=== PATIENT | male | born 1950 | race Caucasian/White ===

== ENCOUNTER 2017-09-25 06:25 | Day surgery (SDC) | payer OTHER ==
[~2017-09-25] VITALS: Ht 175.3 cm; Wt 98.9 kg
[~2017-09-25 06:25] MED LIST: AMLO10 PO; HYDCHL25 PO; LISI5 PO; LOSA50 PO; METO100ER PO; Omeprazole20 M1 PO; PRAV20 PO
[2017-09-25] MEDS ORDERED: ASPI325EC PO (12:39)
[2017-09-25] MEDS ORDERED: ROXICODONE5 MG PO (12:40)
[2017-09-25] MEDS ORDERED: PROM25 PO (12:40)
== END 2017-09-25 15:44 | disposition home or self-care (01) ==
LOC: ORSCMMR 06:25 → ORD 07:30 → ORSCMMR 07:30 → SURS 10:59 → ORSCMMR 15:44
PROVIDERS: Orthopaedic Surgery
PROC: 0SRC0J9 Replacement of Right Knee Joint with Synthetic Substitute, Cemented, Open Approach (ICD-10-PCS; principal; 2017-09-25 07:30)
PROC: 8E0YXBZ Computer Assisted Procedure of Lower Extremity (ICD-10-PCS; principal; 2017-09-25 07:30)
DX: M17.11 Unilateral primary osteoarthritis, right knee (principal); I10 Essential (primary) hypertension; E78.00 Pure hypercholesterolemia, unspecified; Z87.891 Personal history of nicotine dependence; Z79.899 Other long term (current) drug therapy
CPT/HCPCS: 73560-RT; 88300; 97110; 97116; 97162; 97530; C1713; C1776; G8978; G8979; G8980; J0171; J0690; J0735; J1100; J1885; J2250; J2405; J2795; J7120

== ENCOUNTER → 2018-09-03 | Outpatient (CLI) | payer OTHER ==
[~2018-09-03] MED LIST changes: +ASPI325EC PO; +PROM25 PO; +ROXICODONE5 MG PO
== END | disposition home or self-care (01) ==
LOC: LAB SHORT 09:30 → LAB 09:30
DX: N39.0 Urinary tract infection, site not specified (principal)
CPT/HCPCS: 87086

== ENCOUNTER 2021-07-25 07:30 | Day surgery (SDC) | payer OTHER ==
[~2021-07-25] VITALS: Ht 182.9 cm; Wt 103.1 kg
== END 2021-07-25 08:59 | disposition home or self-care (01) ==
LOC: ORSCSDS 07:30
PROVIDERS: Anesthesiology
PROC: 3E0R3BZ Introduction of Anesthetic Agent into Spinal Canal, Percutaneous Approach (ICD-10-PCS; principal; 2021-07-25 08:30)
DX: M96.1 Postlaminectomy syndrome, not elsewhere classified (principal); M54.16 Radiculopathy, lumbar region; M48.061 Spinal stenosis, lumbar region without neurogenic claudication; G89.29 Other chronic pain; M54.50 Low back pain, unspecified; I10 Essential (primary) hypertension; K21.9 Gastro-esophageal reflux disease without esophagitis; E78.00 Pure hypercholesterolemia, unspecified; Z87.891 Personal history of nicotine dependence; E66.9 Obesity, unspecified; Z68.31 Body mass index [BMI] 31.0-31.9, adult; Z79.01 Long term (current) use of anticoagulants; Z79.899 Other long term (current) drug therapy
CPT/HCPCS: J1040

== ENCOUNTER 2023-04-08 22:33 | Emergency (ER) | payer OTHER ==
[~2023-04-08] VITALS: Ht 175.3 cm; Wt 97.5 kg
[2023-04-08 23:15] LABS: BASOPHILS ABSOLUTE AUTO 0.01 K/mm3 (0.00-0.23); BASOPHILS PERCENT AUTO 0 % (0-2); EOSINOPHILS ABSOLUTE AUTO 0.05 K/mm3 (0.00-0.68); EOSINOPHILS PERCENT AUTO 1 % (0-6); Hematocrit 37.5 % (37.0-53.0); Hemoglobin 12.8 g/dL (13.5-17.5); IMMATURE GRAN ABSOLUTE AUTO 0.03 K/mm3 (0.00-0.10); IMMATURE GRAN PERCENT AUTO 1 % (0-1); LYMPHOCYTES ABSOLUTE AUTO 1.03 K/mm3 (0.84-5.20); LYMPHOCYTES PERCENT AUTO 16 % (21-46); MONOCYTES ABSOLUTE AUTO 0.59 K/mm3 (0.16-1.47); MONOCYTES PERCENT AUTO 9 % (4-13); Mean Corpuscular HGB 32.7 pg (26.0-34.0); Mean Corpuscular HGB Conc 34.1 g/dL (31.5-36.5); Mean Corpuscular Volume 96 fL (80-100); Mean Platelet Volume 9.6 fL (9.1-12.4); NEUTROPHILS ABSOLUTE AUTO 4.89 K/mm3 (1.96-9.15); NEUTROPHILS PERCENT AUTO 74 % (41-73); Platelet Count 188 K/mm3 (150-400); RDW Coefficient Variation 12.2 % (11.7-14.2); RDW Standard Deviation 42.8 fL (35.1-46.3); Red Blood Cell Count 3.92 M/mm3 (4.30-5.90)
[2023-04-08 23:49] LABS: International Normalized Ratio 1.07; Prothrombin Time Results 11.2 Sec (9.7-11.5)
[2023-04-08 23:54] LABS: Albumin, Blood 3.3 g/dL (3.4-5.0); Albumin/Globulin Ratio 0.9 (0.8-1.8); Bilirubin, Total 0.3 mg/dL (0.1-1.0); Bun/Creatinine Ratio 26.6 (12.0-20.0); Calcium, Blood 8.5 mg/dL (8.5-10.1); Creatinine, Blood 0.94 mg/dL (0.60-1.20); Globulin, Blood 3.8 g/dL (2.2-4.0); Magnesium, Blood 2.4 mg/dL (1.6-2.4); Phosphorus, Blood 3.4 mg/dL (2.5-4.9); Potassium, Blood 4.1 mmol/L (3.5-5.5); Thyroid Stimulating Hormone 1.58 uIU/mL (0.360-4.800); Total Protein, Blood 7.1 g/dL (6.4-8.2)
[2023-04-09] MEDS ORDERED: ELIQUIS5 M2 PO (01:29)
[2023-04-09] MEDS ORDERED: Vitamin D1000 UNI1 PO (01:29)
[2023-04-09] MEDS ORDERED: TAMS.4ER PO (01:30)
[2023-04-09 03:00] VITALS: BP 128/66
== END 2023-04-09 04:20 | disposition short-term general hospital (02) ==
LOC: ER 22:33
PROVIDERS: Emergency Medicine
DX: R00.1 Bradycardia, unspecified (principal); I10 Essential (primary) hypertension; I48.91 Unspecified atrial fibrillation; Z79.899 Other long term (current) drug therapy; Z79.82 Long term (current) use of aspirin; Z87.891 Personal history of nicotine dependence
CPT/HCPCS: 71045; 80053; 83605; 83735; 84100; 84443; 84484; 85025; 85610; 85730; 92960; 93005; 93010; 96361; 96374; 96375; 99285-25; J0461; J1610; J7030

== ENCOUNTER 2024-06-25 09:49 | Day surgery (SDC) | payer OTHER ==
[2024-06-25] VITALS (14 sets, daily range): BP systolic 112–163; BP diastolic 81–111
[~2024-06-25] VITALS: Ht 177.8 cm; Wt 94.4 kg
[~2024-06-25 09:49] MED LIST changes: +ELIQUIS5 M2 PO; +Lactated Ringer's 1,000 ML IV SCH; +TAMS.4ER PO; +Vitamin D1000 UNI1 PO
--- NOTE | 2024-06-25 10:39 | NUR ---
Ambulatory in Day Surgery History, Chart, Medications and Allergies reviewed before start of procedure. Pre-Op teaching done. Pt verbalizes understanding. Patient States Post-Procedure ride home has been arranged.
[2024-06-25] MEDS ORDERED: propofoL 20 ML IV ONE (11:07)
--- NOTE | 2024-06-25 11:16 | NUR ---
06/25/24 Ambrocio6 Mildred Gutierrez CONFIRMED AND REVIEWED H&P, MEDCICATIONS, ALLERGIES, MEDICAL HISTORY, RESPIRATORY HISTORY, VITAL SIGNS, 3-LEAD EKG, CONSENTS, AND PHYSICIAN ORDERS. PATIENT CONFIRMS NPO STATUS AND AGREES WITH SCHEDULED PROCEDURE. MONITOR INTACT WITH CONTINUOUS PULSE OXIMETRY, CAPNOGRAPHY, 3-LEAD EKG, INTERMITTENT BP. SUPPLEMENTAL O2 TO BE TITRATED THROUGHOUT PROCEDURE TO MAINTAIN O2 SATURATION ABOVE 90%. PATIENT DETERMINED TO BE ASA APPROPRIATE FOR PROPOFOL SEDATION PRIOR TO START OF PROCEDURE BY . MALLAMPATI CLASS 2 AIRWAY: COMPLETE VISUALIZATION OF THE UVULA.
--- NOTE | 2024-06-25 12:06 | NUR ---
Discharge instructions reviewed with patient. Patient verbalizes understanding. Copy given to patient to take home. Patient States Post-Procedure ride home has been arranged. Discharged via wheelchair to private car for ride home.
== END 2024-06-25 12:05 | disposition home or self-care (01) ==
LOC: ORSCMMR 09:49 → ORD 10:30 → ORSCMMR 10:30
PROVIDERS: Internal Medicine Gastroenterology
PROC: 0DBN8ZX Excision of Sigmoid Colon, Via Natural or Artificial Opening Endoscopic, Diagnostic (ICD-10-PCS; principal; 2024-06-25 10:30)
DX: Z12.11 Encounter for screening for malignant neoplasm of colon (principal); K63.5 Polyp of colon; K57.30 Diverticulosis of large intestine without perforation or abscess without bleeding; K64.4 Residual hemorrhoidal skin tags; I48.0 Paroxysmal atrial fibrillation; Z79.01 Long term (current) use of anticoagulants; I10 Essential (primary) hypertension; N40.0 Benign prostatic hyperplasia without lower urinary tract symptoms; E78.00 Pure hypercholesterolemia, unspecified; G47.33 Obstructive sleep apnea (adult) (pediatric); Z79.899 Other long term (current) drug therapy; Z87.891 Personal history of nicotine dependence
CPT/HCPCS: 88305; J2704; J7120

== ENCOUNTER → 2024-12-18 | Outpatient (CLI) | payer OTHER ==
[~2024-12-18] MED LIST changes: -Lactated Ringer's 1,000 ML IV SCH
== END | disposition home or self-care (01) ==
LOC: LAB 15:23 → LAB SHORT 15:23
DX: N39.0 Urinary tract infection, site not specified (principal); R35.0 Frequency of micturition; R30.0 Dysuria
CPT/HCPCS: 87077; 87086; 87186

== ENCOUNTER → 2024-12-24 | Outpatient (CLI) | payer OTHER | LOC: LAB SHORT 15:10 → LAB 15:10 | DX: R30.0 Dysuria (principal); N39.0 Urinary tract infection, site not specified; R35.0 Frequency of micturition | CPT/HCPCS: 87086 ==

== ENCOUNTER 2025-03-01 07:31 | Day surgery (SDC) | payer OTHER ==
[~2025-03-01] VITALS: Ht 172.7 cm; Wt 95.3 kg
[2025-03-01] VITALS (8 sets, daily range): BP systolic 141–177; BP diastolic 84–112
[~2025-03-01 07:31] MED LIST changes: +OMEP20ER PO; +VITAMIN D31000 UNI1 PO
[2025-03-01] MEDS ORDERED: CeFAZolin Sodium 2,000 MG in NS 100 ML IV SCH (08:00)
[2025-03-01] MEDS ORDERED: LOSA25 PO (08:12)
--- NOTE | 2025-03-01 08:50 | NUR ---
History, Chart, Medications and Allergies reviewed before start of procedure. Pre-Op teaching done. Pt verbalizes understanding. Patient confirms NPO status and agrees with scheduled surgery. PT SPOUSE AT BS.
[2025-03-01] MEDS ORDERED: Midazolam HCl 1MG / ML 2ML Vial IV ONE (09:40)
[2025-03-01] MEDS ORDERED: Bupivacaine 0.5% HCl 5 MG/ML 30MLVIAL ONE (09:42)
[2025-03-01] MEDS ORDERED: FentaNYL Citrate 50 MCG/ML 2 ML Injection ONE (09:54)
[2025-03-01] MEDS ORDERED: Rocuronium Bromide 10 MG/ML 5ML Injection IV ONE ×2 (09:56→10:54)
[2025-03-01] MEDS ORDERED: Ketorolac Tromethamine 30mg Vial ONE (10:02)
[2025-03-01] MEDS ORDERED: Dexamethasone Sod Phos 10 MG/ML 1ML VIAL ONE (10:03)
[2025-03-01] MEDS ORDERED: Phenylephrine HCl 10mg/ml 1 ml Vial ONE (10:03)
[2025-03-01] MEDS ORDERED: Ondansetron HCl 2 MG / ML 2ML Vial ONE (10:03)
[2025-03-01] MEDS ORDERED: Albuterol 2.5 MG/3 ML VIAL INH PRN (10:10)
[2025-03-01] MEDS ORDERED: Ondansetron HCl 2 MG / ML 2ML Vial IV PRN (10:10)
[2025-03-01] MEDS ORDERED: FentaNYL Citrate 50 MCG/ML 2 ML Injection IV PRN (10:10)
[2025-03-01] MEDS ORDERED: HYDROmorphone HCl/Pf 1MG SYR IV PRN ×2 (10:10)
[2025-03-01] MEDS ORDERED: Sugammadex Sodium 200 MG/2ML SDV (100 MG/ML) ONE (11:25)
[2025-03-01] MEDS ORDERED: HYDROcodone 5-APAP 325 TAB PO PRN (11:35)
--- NOTE | 2025-03-01 12:37 | NUR ---
PAIENT UP TO DRESS. VOIDED WITHOUT DIFFICULTY AND AMBULATES WITH STEADY GAIT. DENIES DIZZIENSS. NO C/O VERBALIZED. DENIES PAIN. VSS. PATIENT STATES BP IS CONSISTANT WITH BASELINE. PATIENT'S , INA, AT BEDSIDE, AND CONFIRMS THE SAME. TOLERATING COFFEE AND DENIES NAUSEA. CLEAR OCCLUSIVE DRSG OVER FOLDED GAUZE TO RIGHT GROIN NOTED WITH NO NOTED ERYTHEMA, SWELLING OR DRAINAGE. Discharge instructions reviewed with patient. Patient verbalizes understanding. Copy given to patient to take home. Patient States Post-Procedure ride home has been arranged with , Ina. Prescription script given to to fill.
--- NOTE | 2025-03-01 12:48 | NUR ---
PATIENT GIVEN ICE PACK UPON DISCHARGE WITH INSTRUCTIONS ON USE.
== END 2025-03-01 12:44 | disposition home or self-care (01) ==
LOC: ORSCMMR 07:31 → ORD 09:00 → ORSCMMR 12:44
PROVIDERS: Surgery
PROC: 0YU50JZ Supplement Right Inguinal Region with Synthetic Substitute, Open Approach (ICD-10-PCS; principal; 2025-03-01 09:00)
DX: K40.90 Unilateral inguinal hernia, without obstruction or gangrene, not specified as recurrent (principal); I10 Essential (primary) hypertension; Z86.73 Personal history of transient ischemic attack (TIA), and cerebral infarction without residual deficits; I48.0 Paroxysmal atrial fibrillation; Z79.01 Long term (current) use of anticoagulants; G47.33 Obstructive sleep apnea (adult) (pediatric); E78.00 Pure hypercholesterolemia, unspecified; N40.0 Benign prostatic hyperplasia without lower urinary tract symptoms; I27.20 Pulmonary hypertension, unspecified; Z95.0 Presence of cardiac pacemaker; Z79.899 Other long term (current) drug therapy
CPT/HCPCS: C1781; J0690; J1100; J1885; J2250; J2371; J2405; J2704; J3010; J7120

== ENCOUNTER 2025-03-08 22:52 | Inpatient (IN) | payer OTHER ==
[~2025-03-08] VITALS: Ht 170.2 cm; Wt 96.5 kg
[~2025-03-08 22:52] MED LIST changes: +LOSA25 PO
[2025-03-08 23:58] LABS: BASOPHILS ABSOLUTE AUTO 0.02 K/mm3 (0.00-0.23); BASOPHILS PERCENT AUTO 0 % (0-2); EOSINOPHILS ABSOLUTE AUTO 0.10 K/mm3 (0.00-0.68); EOSINOPHILS PERCENT AUTO 1 % (0-6); Hematocrit 35.9 % (37.0-53.0); Hemoglobin 12.2 g/dL (13.5-17.5); IMMATURE GRAN ABSOLUTE AUTO 0.09 K/mm3 (0.00-0.10); IMMATURE GRAN PERCENT AUTO 1 % (0-1); LYMPHOCYTES ABSOLUTE AUTO 1.30 K/mm3 (0.84-5.20); LYMPHOCYTES PERCENT AUTO 13 % (21-46); MONOCYTES ABSOLUTE AUTO 0.73 K/mm3 (0.16-1.47); MONOCYTES PERCENT AUTO 7 % (4-13); Mean Corpuscular HGB Conc 34.0 g/dL (31.5-36.5); Mean Corpuscular Volume 96 fL (80-100); NEUTROPHILS ABSOLUTE AUTO 7.89 K/mm3 (1.96-9.15); NEUTROPHILS PERCENT AUTO 78 % (41-73); NRBC ABSOLUTE 0.00 K/mm3 (0.00-0.02); NRBC Auto 0.0 /100 WBC (0.0-0.2); Platelet Count 238 K/mm3 (150-400); RDW Coefficient Variation 12.5 % (11.7-14.2); RDW Standard Deviation 44.2 fL (35.1-46.3)
[2025-03-09] VITALS (22 sets, daily range): BP systolic 86–140; BP diastolic 65–121
[2025-03-09 00:16] LABS: Alanine Aminotransfer (ALT/SGP 21.0 U/L (12-78); Albumin, Blood 2.8 g/dL (3.4-5.0); Albumin/Globulin Ratio 0.9 (0.8-1.8); Anion Gap 8.0 mmol/L (3-11); Aspartate Aminotrans (AST/SGOT 15.0 U/L (12-37); Bilirubin, Total 0.3 mg/dL (0.1-1.0); Blood Urea Nitrogen 20.0 mg/dL (8-24); CO2, Blood 26.0 mmol/L (21-32); Calcium, Blood 8.1 mg/dL (8.5-10.1); Chloride, Blood 100.0 mmol/L (98-108); Creatinine, Blood 0.92 mg/dL (0.60-1.20); Globulin, Blood 3.0 g/dL (2.2-4.0); Glucose, Blood 159.0 mg/dL (70-99); Potassium, Blood 3.8 mmol/L (3.5-5.5); Sodium, Blood 130.0 mmol/L (136-145); Total Protein, Blood 5.8 g/dL (6.4-8.2)
[2025-03-09] MEDS ORDERED: NS 1,000 ML IV SCH ×2 (00:25→05:00)
[2025-03-09] MEDS ORDERED: FentaNYL Citrate 50 MCG/ML 2 ML Injection IV PRN ×3 (00:25→14:20)
[2025-03-09 02:09] LABS: Source, Urine Clean Catch
[2025-03-09] MEDS ORDERED: HUMAN PROTHROMBIN COMPLX IV ONE (02:15)
[2025-03-09] MEDS ORDERED: WATER FOR INJECTION STERILE IV ONE (02:15)
[2025-03-09 02:17] LABS: Bilirubin, Urine Neg (Neg); Glucose Qualitative, Urine Neg (Neg); Ketones, Urine Neg (Neg); Leukocyte Esterase, Urine 1+ (Neg); Protein, Urine 2+ (Neg); Specific Gravity, Urine 1.010 (1.003-1.022); Urobilinogen, Urine NORM (Normal)
[2025-03-09 02:38] LABS: Color, Urine Yellow (P-Yellow)
[2025-03-09 02:40] LABS: Red Blood Cells, Urine 0-2 /hpf (0-2); White Blood Cells, Urine 0-2 /hpf (0-5)
[2025-03-09] MEDS ORDERED: FLU VACC TS2025(65UP)/MF59C/PF 45 MCG/0.5 ML SYRINGE IM SCH (04:50)
[2025-03-09 05:08] LABS: Hematocrit 28.8 % (37.0-53.0); Hemoglobin 10.0 g/dL (13.5-17.5)
[2025-03-09 05:37] LABS: Alanine Aminotransfer (ALT/SGP 20.0 U/L (12-78); Albumin, Blood 2.5 g/dL (3.4-5.0); Albumin/Globulin Ratio 0.9 (0.8-1.8); Anion Gap 9.0 mmol/L (3-11); Aspartate Aminotrans (AST/SGOT 18.0 U/L (12-37); Bilirubin, Total 0.3 mg/dL (0.1-1.0); Blood Urea Nitrogen 18.0 mg/dL (8-24); CO2, Blood 25.0 mmol/L (21-32); Calcium, Blood 7.8 mg/dL (8.5-10.1); Chloride, Blood 102.0 mmol/L (98-108); Creatinine, Blood 0.77 mg/dL (0.60-1.20); Globulin, Blood 2.8 g/dL (2.2-4.0); Glucose, Blood 156.0 mg/dL (70-99); Potassium, Blood 4.2 mmol/L (3.5-5.5); Sodium, Blood 132.0 mmol/L (136-145); Total Protein, Blood 5.3 g/dL (6.4-8.2)
--- NOTE | 2025-03-09 07:16 | NUR ---
ADMIT PT ARRIVED TO SURGICAL UNIT AT 0605 TODAY VIA GURNEY FROM ED. ABLE TO SLIDE/TRANSFER SELF PRN TO BED. SCROTUM SWOLLEN, PRESSURE DRESSING/MICHELA WRAP PLACED IN ED CDI. IS A/OX4 WITH VSS, ON RA. TELE PLACED; HR AFIB IN 80'S WITH OCC. V PACER. PER CONFORMAL PAD FORMER. TAKES ELITONEY, LAST DOSE 199903/08/25. REPORTS PACEMAKER. DENIES CHEST PAIN, PRESSURE, NV, OR N.T. ORIENTATION TO ROOM PROVIDED. DENIES NEEDS. HAS CALL LIGHT IN REACH. IS NPO. BEDSIDE REPORT GIVEN TO ONCOMING RN. AWAITING SURGICAL CONSULT
[2025-03-09] MEDS ORDERED: Cholecalciferol 1000 Unit Tablet (=25MCG) PO SCH (09:00)
[2025-03-09 09:11] LABS: Ferritin, Serum 237.0 ng/mL (26-388); Total Iron Binding Capacity 201.0 ug/dL (250-450)
[2025-03-09] MEDS ORDERED: LOSA50 PO (10:02)
[2025-03-09] MEDS ORDERED: METO50ER PO (10:03)
[2025-03-09] MEDS ORDERED: Rocuronium Bromide 10 MG/ML 5ML Injection IV ONE ×2 (11:26→13:06)
[2025-03-09] MEDS ORDERED: Midazolam HCl 1MG / ML 2ML Vial ONE (11:27)
[2025-03-09] MEDS ORDERED: FentaNYL Citrate 50 MCG/ML 2 ML Injection ONE (11:27)
--- NOTE | 2025-03-09 11:38 | NUR ---
TO DAY SURGERY VIA GOURNEY. UNABLE TO STAND TRANSFER BUT [facility]
[2025-03-09] MEDS ORDERED: Bupivacaine 0.5% HCl 5 MG/ML 30MLVIAL ONE (11:54)
--- NOTE | 2025-03-09 12:14 | NUR ---
UPPER AND LOWER DENTURES SENT TO PACU.
[2025-03-09 12:18] LABS: Hematocrit 30.1 % (37.0-53.0); Hemoglobin 10.3 g/dL (13.5-17.5)
[2025-03-09] MEDS ORDERED: Phenylephrine HCl 10mg/ml 1 ml Vial ONE (12:29)
[2025-03-09] MEDS ORDERED: Ondansetron HCl 2 MG / ML 2ML Vial ONE (12:32)
[2025-03-09] MEDS ORDERED: Dexamethasone Sod Phos 10 MG/ML 1ML VIAL ONE (12:33)
[2025-03-09] MEDS ORDERED: Ketorolac Tromethamine 30mg Vial ONE (12:39)
[2025-03-09] MEDS ORDERED: CeFAZolin Sodium 1000 mg Vial ONE ×2 (12:41→12:42)
[2025-03-09] MEDS ORDERED: Phenylephrine HCl 100 MCG/ML-NS 10MLSYR (1MG/10ML) ONE (12:59)
[2025-03-09] MEDS ORDERED: Sugammadex Sodium 200 MG/2ML SDV (100 MG/ML) ONE (13:32)
[2025-03-09] MEDS ORDERED: Ondansetron HCl 2 MG / ML 2ML Vial IV PRN (14:20)
[2025-03-09] MEDS ORDERED: HYDROmorphone HCl/Pf 1MG SYR IV PRN ×3 (14:20→18:20)
--- NOTE | 2025-03-09 14:25 | NUR ---
SCROTUM DARK PURPLE AND SWOLLEN LARGER THAN GRAPEFRUIT, UNABLE TO VISUALIZE PENIS, DR MOBLEY NOTIFIED, AT BEDSIDE TO VISUALIZE, STATES FINDINGS ARE EXPECTED, NO FURTHER INTERVENTION AT THIS TIME. PT VERY AGITATED, DIFFICULT TO MONITOR DUE TO MOVEMENT, PT ORIENTED, 2ND RN CALLED TO BEDSIDE TO HELP KEEP PT CALM AND SAFE IN [facility].
[2025-03-09] MEDS ORDERED: Human Prothrombin Complx(Pcc) 2,000 UNIT in Water For Injection,Sterile 80 ML IV ONE (15:00)
--- NOTE | 2025-03-09 15:48 | NUR ---
ARRIVAL TO UNIT PT ARRIVED TO UNIT AT APPROX 1515. A/OX4. TOLERATING PO INTAKE. RESTING IN BED. FOLLEY IN PLACE AND DRAINING TO GRAVITY. AISHWARYA DRAIN ON L GROIN. CALL LIGHT IN REACH SPOUSE IN ROOM.
--- NOTE | 2025-03-09 18:05 | NUR ---
SHIFT SUMMARY POD 0 DRAINAGE OF GROIN HEMATOMA PT IS A/OX4, WAS ABLE TO STAND AT EDGE OF BED BUT IT WAS PAINFUL DUE TO ENLARGED SCROTUM. AISHWARYA DRAIN PUTTING OUT SANGUINEOUS DRAINAGE, INSERTION SITE ALSO DRAINING. TWO INCISION SITES FROM THE PROCEDURE, C/D/I. TOLERATING DIET. DENIES N/V. PAIN MANAGED PER EMAR. SCROTUM IS ECCHYMOTIC AND APPROX THE SIZE OF A C[place]PE. CALL LIGHT IN REACH BED IN LOWEST POSITION.
[2025-03-10 04:02] VITALS: BP 146/88
--- NOTE | 2025-03-10 05:35 | NUR ---
SHIFT SUMMARY A/OX4, SBA FOR TRANSFERS. DENIES PAIN T/O THE NIGHT. SWELLING AND BRUISING NOTED TO SCROTUM. AISHWARYA DRAIN TO R. GROIN WITH ERROL RED OUTPUT. NO ACUTE CHANGES AT THIS TIME.
[2025-03-10 05:45] LABS: BASOPHILS ABSOLUTE AUTO 0.01 K/mm3 (0.00-0.23); BASOPHILS PERCENT AUTO 0 % (0-2); EOSINOPHILS ABSOLUTE AUTO 0.00 K/mm3 (0.00-0.68); EOSINOPHILS PERCENT AUTO 0 % (0-6); Hematocrit 26.4 % (37.0-53.0); Hemoglobin 8.8 g/dL (13.5-17.5); IMMATURE GRAN ABSOLUTE AUTO 0.07 K/mm3 (0.00-0.10); IMMATURE GRAN PERCENT AUTO 1 % (0-1); LYMPHOCYTES ABSOLUTE AUTO 0.94 K/mm3 (0.84-5.20); LYMPHOCYTES PERCENT AUTO 8 % (21-46); MONOCYTES ABSOLUTE AUTO 0.71 K/mm3 (0.16-1.47); MONOCYTES PERCENT AUTO 6 % (4-13); Mean Corpuscular HGB Conc 33.3 g/dL (31.5-36.5); Mean Corpuscular Volume 96 fL (80-100); NEUTROPHILS ABSOLUTE AUTO 9.56 K/mm3 (1.96-9.15); NEUTROPHILS PERCENT AUTO 85 % (41-73); NRBC ABSOLUTE 0.00 K/mm3 (0.00-0.02); NRBC Auto 0.0 /100 WBC (0.0-0.2); Platelet Count 235 K/mm3 (150-400); RDW Coefficient Variation 12.9 % (11.7-14.2); RDW Standard Deviation 45.3 fL (35.1-46.3)
[2025-03-10 06:28] LABS: Anion Gap 11.0 mmol/L (3-11); Blood Urea Nitrogen 15.0 mg/dL (8-24); CO2, Blood 22.0 mmol/L (21-32); Calcium, Blood 8.0 mg/dL (8.5-10.1); Chloride, Blood 104.0 mmol/L (98-108); Creatinine, Blood 0.71 mg/dL (0.60-1.20); Glucose, Blood 114.0 mg/dL (70-99); Potassium, Blood 4.5 mmol/L (3.5-5.5); Sodium, Blood 132.0 mmol/L (136-145)
[2025-03-10 07:40] VITALS: BP 135/88
[2025-03-10 12:53] LABS: Hematocrit 23.9 % (37.0-53.0); Hemoglobin 8.0 g/dL (13.5-17.5)
--- NOTE | 2025-03-10 14:01 | NUR ---
SCROTUM COMPRESSION APPLIED USING MICHELA WRAP.
[2025-03-10 14:18] VITALS: BP 135/78
--- NOTE | 2025-03-10 16:51 | NUR ---
SHIFT SUMMARY PT IS A/OX4, TOLERATING PO INTAKE, DENIES N/V. VOIDING WELL. NO BM TODAY. AISHWARYA DRAIN PUTTING OUT AT A SLOWER RATE TODAY. PT ONLY REQUIRED ONE DRESSING CHANGE DUE TO SANGUINEOUS DRAINAGE SURROUNDING AISHWARYA INSERTION SITE. PT DECLINED PAIN MEDS T/O SHIFT. COMPRESSION WRAP APPLIED TO SCROTUM. VSS. HGB DROPPED TO 8 TODAY, MD AWARE. CALL LIGHT IN REACH, BED IN LOWEST IN POSITION.
[2025-03-10 17:54] LABS: Hematocrit 23.7 % (37.0-53.0); Hemoglobin 7.9 g/dL (13.5-17.5)
[2025-03-10 19:20] VITALS: BP 110/70
[2025-03-11 00:29] VITALS: BP 122/97
[2025-03-11 03:56] VITALS: BP 144/99
[2025-03-11 04:21] LABS: BASOPHILS ABSOLUTE AUTO 0.01 K/mm3 (0.00-0.23); BASOPHILS PERCENT AUTO 0 % (0-2); EOSINOPHILS ABSOLUTE AUTO 0.11 K/mm3 (0.00-0.68); EOSINOPHILS PERCENT AUTO 2 % (0-6); Hematocrit 21.5 % (37.0-53.0); Hemoglobin 7.4 g/dL (13.5-17.5); IMMATURE GRAN ABSOLUTE AUTO 0.04 K/mm3 (0.00-0.10); IMMATURE GRAN PERCENT AUTO 1 % (0-1); LYMPHOCYTES ABSOLUTE AUTO 1.31 K/mm3 (0.84-5.20); LYMPHOCYTES PERCENT AUTO 22 % (21-46); MONOCYTES ABSOLUTE AUTO 0.44 K/mm3 (0.16-1.47); MONOCYTES PERCENT AUTO 8 % (4-13); Mean Corpuscular HGB Conc 34.4 g/dL (31.5-36.5); Mean Corpuscular Volume 95 fL (80-100); NEUTROPHILS ABSOLUTE AUTO 3.97 K/mm3 (1.96-9.15); NEUTROPHILS PERCENT AUTO 67 % (41-73); NRBC ABSOLUTE 0.00 K/mm3 (0.00-0.02); NRBC Auto 0.0 /100 WBC (0.0-0.2); Platelet Count 173 K/mm3 (150-400); RDW Coefficient Variation 12.8 % (11.7-14.2); RDW Standard Deviation 44.3 fL (35.1-46.3)
[2025-03-11 04:45] LABS: Anion Gap 6.0 mmol/L (3-11); Blood Urea Nitrogen 14.0 mg/dL (8-24); CO2, Blood 28.0 mmol/L (21-32); Calcium, Blood 7.9 mg/dL (8.5-10.1); Chloride, Blood 104.0 mmol/L (98-108); Creatinine, Blood 0.74 mg/dL (0.60-1.20); Glucose, Blood 97.0 mg/dL (70-99); Potassium, Blood 4.4 mmol/L (3.5-5.5); Sodium, Blood 134.0 mmol/L (136-145)
--- NOTE | 2025-03-11 05:23 | NUR ---
SHIFT SUMMARY NOC. PT POD 2 FOR I&D OF SCROTUM. PT HAS COMPRESSION WRAP AND DRAIN SPOUNGES OVER AISHWARYA DRAIN ARE C/D/I. SEROSANG DRAINAGE NOTED AT START OF SHIFT AND CHANGED. SCROTUM REMAINS SWOLLEN AND PURPLE IN COLOR. PT MEDICATED FOR PAIN X1 THIS SHIFT WITH REPORTED RELIEF. BP NOTED TO BE TRENDING UPWARD, DENIES SOB OR CP. TELEMETRY INTACT WITH NO REPORTED ACUTE EVENTS. SEWELL PATENT AND DRAINING TO GRAVITY. TOLERATING PO. PT MAKES NEEDS KNOWN, CALL LIGHT IN REACH.
[2025-03-11 07:10] VITALS: BP 145/78
--- NOTE | 2025-03-11 07:52 | NUR ---
DRESSING CHANGE. DURING BEDSIDE SHIFT REPORT COMPRESSION DRESSING NOTED TO HAVE MODERATE SEROSANGUINEOUS DRAINAGE LEAKING THROUGH COMPRESSION DRESSING. CLEANSED WITH NS, NEW CHG TEGADERM PLACED ON AISHWARYA DRAIN, SUTURES INTACT. NEW SCROTAL COMPRESSION WRAP PLACED WITH ATTENDS OVER. PT REPORTS INCREASED DRAINAGE WITH MOVEMENT. RESIDENT PROVIDER PRESENT DURING DRESSING CHANGE AND NOTIFIED OF INCREASED DRAINAGE AND UPWARD TRENDING BLOOD PRESSURES. NO NEW ORDERS AT THIS TIME.
[2025-03-11] MEDS ORDERED: Polyethylene Glycol 3350 17 gm PO PRN (08:35)
[2025-03-11] MEDS ORDERED: Polyethylene Glycol 3350 17 gm PO ONE (12:00)
[2025-03-11 14:06] VITALS: BP 128/71
[2025-03-11 20:26] VITALS: BP 123/93
[2025-03-12 02:47] VITALS: BP 139/91
[2025-03-12 04:08] VITALS: BP 132/92
[2025-03-12 05:02] LABS: Hematocrit 25.5 % (37.0-53.0); Hemoglobin 8.5 g/dL (13.5-17.5)
[2025-03-12 07:17] VITALS: BP 183/103
--- NOTE | 2025-03-12 07:25 | NUR ---
SHIFT SUMMARY NOC. PT POD 3 FOR I&D OF THE SCROTUM. DECREASED SWELLING NOTED, AISHWARYA DRAIN PATENT AND PRODUCING SEROSANG DRAINAGE. HEMOGLOBIN IMPROVED SINCE LAST RECHECK. PT MEDICATED FOR PAIN X1 THIS SHIFT. PT'S SEWELL PATENT AND DRAINING TO GRAVITY. TELEMETRY NOTED AFIB WITH ALTERNATING VPACED IN THE 70S. MAKES NEEDS KNOWN, CALL LIGHT IN REACH.
--- NOTE | 2025-03-12 08:30 | NUR ---
TELE BOX RETURNED TO PCU
[2025-03-12] MEDS ORDERED: ACET325 PO (14:04)
[2025-03-12] MEDS ORDERED: OXAYDO5 M1 PO (14:05)
[2025-03-12] MEDS ORDERED: Vitamin D1000 UNI1 PO (14:05)
[2025-03-12] MEDS ORDERED: FERSU300 PO (14:05)
--- NOTE | 2025-03-12 15:43 | NUR ---
Patient discharged home with spouse and referral to home health. Education/instructions discussed with patient and spouse prior to discharge. All questions answered prior to leaving. Both, IV and Cosme catheter was removed prior to patient discharge without any issues. Patient able to urinate x2. Patient transported via wheelchair to front entrance.
== END 2025-03-12 15:34 | disposition home health service (06) | DRG 908 ==
LOC: ER 22:52 → SURS 22:53
PROVIDERS: Emergency Medicine; Student in an Organized Health Care Education/Training Program; Surgery; ADMIT Internal Medicine
PROC: 0V950ZZ Drainage of Scrotum, Open Approach (ICD-10-PCS; 2025-03-09)
PROC: 30283B1 Transfusion of Nonautologous 4-Factor Prothrombin Complex Concentrate into Vein, Percutaneous Approach (ICD-10-PCS; 2025-03-09)
PROC: 0W3R0ZZ Control Bleeding in Genitourinary Tract, Open Approach (ICD-10-PCS; principal; 2025-03-09 12:00)
DX: N99.840 Postprocedural hematoma of a genitourinary system organ or structure following a genitourinary system procedure (principal); D62 Acute posthemorrhagic anemia; E87.1 Hypo-osmolality and hyponatremia; S30.22XA Contusion of scrotum and testes, initial encounter; I10 Essential (primary) hypertension; I48.91 Unspecified atrial fibrillation; N40.0 Benign prostatic hyperplasia without lower urinary tract symptoms; E78.00 Pure hypercholesterolemia, unspecified; G47.30 Sleep apnea, unspecified; R73.9 Hyperglycemia, unspecified; R33.9 Retention of urine, unspecified; Z95.2 Presence of prosthetic heart valve; Z87.891 Personal history of nicotine dependence; Z79.01 Long term (current) use of anticoagulants; Z79.899 Other long term (current) drug therapy
CPT/HCPCS: 36415; 74177; 80048; 80053; 81001; 82607; 82728; 82746; 83036; 83540; 83550; 83605; 85014; 85018; 85025; 87086; 93005; 93010; 94760; 96365-59; 96366; 96375; 96376; 99285-25; A9270; G0378; J0690; J1100; J1885; J2250; J2371; J2405; J2704; J3010; J7030; J7120; J7168; Q9967